=== PATIENT | female | born 1990 | race Caucasian/White ===

== ENCOUNTER 2020-05-16 14:41 | Emergency (ER) | payer OTHER, SELFPAY ==
--- NOTE | ~2020-05-16 | XR_ITS ---
XR shoulder LT min 2V 05/16/2020 15:49 INDICATION: Left shoulder pain PROCEDURE: 4 views left shoulder COMPARISON: No prior studies for comparison. FINDINGS: Fracture, dislocation or subluxation is not identified. The soft tissues appear within norm al limits. No foreign bodies are identified. IMPRESSION: 1: NO ACUTE BONE OR JOINT ABNORMALITY IDENTIFIED. Reviewed, dictated and finalized at location B. SWORD PUZZLE MAKER
--- NOTE | ~2020-05-16 | XR_ITS ---
EXAMINATION: XR elbow LT min 3V DATE: 05/16/2020 15:49 INDICATION: Diffuse left elbow pain post fall with inability to fully extend the elbow TECHNIQUE: Anteroposterior, two oblique and lateral views of the left elbow were obtained. COMPARISON: None. 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 There are multiple loose osteochondral bodies in the anterior recess and a smaller loose o steochondral body at the olecranon fossa. The combination of osteophytes and loose bodies likely acco unts for the reported decreased range of motion on extension, also likely limiting degree of flexion. There is a linear lucency projecting across the lateral margin of the radial head on the AP projecti on with suggestion of a subtle step off along the articular cortex on one of the oblique projections suspicious for a small nondisplaced intra-articular fracture. Specificity is however decreased by the abnormal cortical margins resulting from the hypertrophic osteophytosis. There are additional hetero topic ossicles which could be either chronic enthesopathy or prior trauma at the medial and lateral e picondylar origins of the common flexor and extensor tendon wads respectively. An elbow joint effusio n is present with displacement of the posterior fat pad which could be either reactive related to the osteoarthritis or posttraumatic. IMPRESSION: 1. Likely nondisplaced intra-articular fracture involving a small portion of the articular surface of the head of the left radius. Specificity is however decreased by the prominent hypertrophic osteophy dio associated with severe osteoarthritis which along with multiple loose osteochondral bodies in the joint space likely account for the decreased range of motion. Reviewed, dictated and finalized at location A. CATION RECONCILIATION TECHNICIAN IMPRESSION: 1. Likely nondisplaced intra-articular fracture involving a small portion of th e articular surface of the head of the left radius. Specificity is however decr eased by the prominent hypertrophic osteophytes associated with severe osteoart hritis which along with multiple loose osteochondral bodies in the joint space likely account for the decreased range of motion.
[2020-05-16 15:06] VITALS: BP 131/98; PULSE 84; RESP 16; TEMP 35.9; O2SAT 99
--- NOTE | 2020-05-16 16:32 | ED.GENADULT ---
HPI - General Adult General Chief complaint: Extremity Injury, Upper Stated complaint: left shoulder dislocation?? Time Seen by Provider: 05/16/20 15:04 Source: patient Mode of arrival: ambulatory Limitations: no limitations History of Present Illness HPI narrative: Patient presents with chief complaint left shoulder and elbow pain that began after being intoxicated yesterday and falling and putting out both palms to catch her self. Patient states she has dislocated the left elbow and fracture in the past. Patient denies any other injuries. Patient states that she also hit her eye but that was many days ago. She denies neurologic deficits, headache or any other symptoms. Patient denies chance of due to tubal ligation. Patient reports decreased range of motion to the extremity. Related Data Home Medications Medication Instructions Recorded Confirmed famotidine 20 mg PO DAILY 05/16/20 ibuprofen [Motrin] 800 mg PO TID PRN 05/16/20 levetiracetam [Keppra] 500 mg PO BID 05/16/20 trazodone 50 mg PO HS PRN 05/16/20 Allergies Allergy/AdvReac Type Severity Reaction Status Date / Time No Known Allergies Allergy Verified 05/16/20 14:44 Review of Systems Review of Systems: Narrative: CONSTITUTIONAL: Denies fever, chills, or sweats. EYES: Denies visual changes, redness, or discharge. ENT: Denies rhinorrhea, congestion, sore throat, or otalgia. CARDIOVASCULAR: Denies chest pain, palpitations, or edema. RESPIRATORY: Denies cough or dyspnea. GASTROINTESTINAL: Denies abdominal pain, nausea, vomiting, or diarrhea. GENITOURINARY: Denies dysuria or hematuria. SKIN: Reports bruising left eye Denies rash or itching. MUSCULOSKELETAL: Reports left shoulder and elbow pain Denies back pain, joint pain, or myalgia. NEUROLOGIC: Denies headache, numbness, dizziness, or weakness. PSYCHIATRIC: Denies anxiety or depression. Exam Narrative: Exam Narrative: GENERAL: Well-appearing, well-nourished. HEAD: Normocephalic, atraumatic. EYES: PERRLA and EOMI. Ecchymosis under left eye. ENT: Nares clear, no rhinorrhea or epistaxis. Mucous membranes moist. Oropharynx without tonsillar hypertrophy exudate or other lesions. NECK: Supple. No adenopathy or masses. No vertebral tenderness or loss of ROM. CHEST: Clear to auscultation. No respiratory distress. No wheezes rales or rhonchi HEART: Regular rate and rhythm. Normal peripheral pulses. EXTREMITIES: Decreased flexion and extension of left elbow due to pain. No ecchymosis. Rib Stiffener And Heel Dipper strength intact. No open wounds. Diffuse shoulder tenderness no sign of deformity or dislocation. SKIN: Warm, dry, no rash. NEURO: No focal deficits. Alert and oriented x3. PSYCH: Normal mood and affect. Course Vital Signs Vital signs: Vital Signs Temperature 96.6 F L 05/16/20 15:06 Pulse Rate 84 05/16/20 15:06 Respiratory Rate 16 05/16/20 15:06 Blood Pressure 131/98 H 05/16/20 15:06 Pulse Oximetry 99 05/16/20 15:06 Temperature 96.6 F L 05/16/20 15:06 Pulse Rate 84 05/16/20 15:06 Respiratory Rate 16 05/16/20 15:06 Blood Pressure 131/98 H 05/16/20 15:06 Pulse Oximetry 99 05/16/20 15:06 Procedures Orthopedic Splinting/Casting Injury #1: Side: left Upper Extremity Injury Location: elbow OCL: long arm Pre-Procedure Neuro Vascular Exam: normal Post-Procedure Neuro Vascular Exam: normal Other Orthopedic Equipment: other (sling) Medical Decision Making MDM Narrative Medical decision making narrative: It is possible the patient has a old fracture but is also possible it is an acute fracture. We will splint and refer patient for follow property management specialist for further investigation and management. Patient instructed not to use. Shoulder and RICE. Patient return to emergency department if she has any emergent symptoms. Patient admits that she is alcoholic so additional pain medications will not be prescribed. Differential Diagnosis D
== END 2020-05-16 17:07 | disposition home or self-care (01) ==
PROVIDERS: Emergency Provider Emergency Medicine; PCP Obstetrics & Gynecology
DX: S52.125A Nondisplaced fracture of head of left radius, initial encounter for closed fracture (principal); W19.XXXA Unspecified fall, initial encounter
CPT/HCPCS: 29105; 73030; 73080; 99284

== ENCOUNTER 2020-07-27 15:21 | Emergency (ER) | payer OTHER, SELFPAY ==
[2020-07-27 15:24] VITALS: BP 138/96; PULSE 114; RESP 22; TEMP 36.1; O2SAT 100
[2020-07-27 17:32] VITALS: BP 133/98; PULSE 101; RESP 18; TEMP 36.7; O2SAT 100
--- NOTE | 2020-07-27 17:34 | PC.NURSE ---
Patient reports subjective decrease in respiratory symptoms that she reported in initial assessment.
--- NOTE | 2020-07-27 18:51 | PC.NURSE ---
Ambulatory to ED 12. c/o having a panic attack today when she found out a family friend was placed on hospice. Has had an increase in panic attacks over the past month.
--- NOTE | 2020-07-27 19:29 | ED.GENADULT ---
HPI - General Adult General Chief complaint: Anxiety Stated complaint: short of breath Time Seen by Provider: 07/27/20 19:15 History of Present Illness HPI narrative: Patient a 30-year-old female presents the emergency department with chief complaint of panic attack. The patient states has been under a lot of stress and has noticed that for the last few weeks she has had 4 panic attacks. The patient states that I am seeing her she got into a discussion and then afterwards became extremely anxious. Patient states he felt as though the world was getting in on her he believes her heart was racing patient states that she been in the emergency department and is gradually improved. Patient denies suicidal or homicidal ideation and states that she needs a work note Related Data Home Medications Medication Instructions Recorded Confirmed famotidine 20 mg PO DAILY 05/16/20 05/18/20 ibuprofen [Motrin] 800 mg PO TID PRN 05/16/20 05/18/20 levetiracetam [Keppra] 500 mg PO BID 05/16/20 05/18/20 trazodone 50 mg PO HS PRN 05/16/20 05/18/20 multivitamin 1 tablet PO DAILY 05/18/20 Allergies Allergy/AdvReac Type Severity Reaction Status Date / Time No Known Allergies Allergy Verified 07/27/20 18:48 Review of Systems Review of Systems: Narrative: A 10 system review of systems was completed on the patient and is negative except for what is stated in the HPI. Nursing and ancillary documentation was reviewed. [facility] Past Medical History Medical History Anxiety Arthritis GERD (gastroesophageal reflux disease) UTI (urinary tract infection) Wears glasses Weight gain Surgical History Surgical History History of x2 Family History Family History Other Arthritis Asthma Cerebrovascular accident Depression Diabetes mellitus Hypertension Social History Social History Smoking status: Never smoker Alcohol intake: current Substance use: current Substance use type: does not use Gender identity (if verbalized by the patient): Female Exam Narrative: Exam Narrative: GENERAL: Well-appearing, well-nourished, and in no acute distress. HEAD: Normocephalic, atraumatic. EYES: PERRLA and EOMI. ENT: Nares clear, no rhinorrhea or epistaxis. Mucous membranes moist. NECK: Supple. CHEST: Clear to auscultation. No respiratory distress. HEART: Regular rate and rhythm. No murmur heard. Normal peripheral pulses. ABDOMEN: Soft, nontender, nondistended, normal active bowel sounds. EXTREMITIES: Normal range of motion. No edema. SKIN: Warm, dry, no rash. NEURO: No focal deficits. Alert and oriented x3. PSYCH: Normal mood and affect. Course Vital Signs Vital signs: Vital Signs Temperature 36.1 C L 07/27/20 15:24 Pulse Rate 114 H 07/27/20 15:24 Respiratory Rate 22 H 07/27/20 15:24 Blood Pressure 138/96 H 07/27/20 15:24 Pulse Oximetry 100 07/27/20 15:24 Temperature 36.7 C 07/27/20 17:32 Pulse Rate 101 H 07/27/20 17:32 Respiratory Rate 18 07/27/20 17:32 Blood Pressure 133/98 H 07/27/20 17:32 Pulse Oximetry 100 07/27/20 17:32 Medical Decision Making Vital Signs Vital Signs: Vital Signs Temperature 36.1 C L 07/27/20 15:24 Pulse Rate 114 H 07/27/20 15:24 Respiratory Rate 22 H 07/27/20 15:24 Blood Pressure 138/96 H 07/27/20 15:24 Pulse Oximetry 100 07/27/20 15:24 Temperature 36.7 C 07/27/20 17:32 Pulse Rate 101 H 07/27/20 17:32 Respiratory Rate 18 07/27/20 17:32 Blood Pressure 133/98 H 07/27/20 17:32 Pulse Oximetry 100 07/27/20 17:32 Discharge Plan Discharge Clinical Impression: Acute anxiety, Panic disorder Patient Disposition: Home, Self-Care Condition: Stable Instructions: Antibiot
[2020-07-27 19:30] VITALS: BP 135/77; PULSE 86; RESP 19; TEMP 36.9; O2SAT 99
--- NOTE | 2020-07-27 20:08 | PC.NURSE ---
Pt updated on poc and all questions and concerns addressed. Pt advised to press call button for assistance.
[2020-07-27] MEDS: hydrOXYzine HCL 25 MG TABLET 50 MG PO (20:09)
--- NOTE | 2020-07-27 20:19 | PC.NURSE ---
Pt presented to ED with complaints of a panic attack. Pt states initial onset was at 1000 this morning. Pt states she then went to work at two and immediately left after arriving because she felt like she couldn't breathe. Pt states she was provided 0.5mg of clonipin from her sister that provided no relief. Pt states she has had x4 panic attacks in the last month and has not been formally diagnosed or prescribed any medications to tx. Pt states she feels a little better but she still feels anxious. Breathing noted to be even and unlabored with O2 saturation of 99% on room air. Pt alert and oriented x4 and in no obvious distress. Pt also requesting a work note for today. Pt resting on cart in its lowest position with call button and personal items within reach. Spouse at bedside; advise to press call button for assistance.
== END 2020-07-27 20:26 | disposition home or self-care (01) ==
PROVIDERS: Emergency Provider Emergency Medicine; PCP Obstetrics & Gynecology
DX: F41.0 Panic disorder [episodic paroxysmal anxiety] (principal); F41.9 Anxiety disorder, unspecified; M19.90 Unspecified osteoarthritis, unspecified site; K21.9 Gastro-esophageal reflux disease without esophagitis; Z87.440 Personal history of urinary (tract) infections
CPT/HCPCS: 99283; A9270

== ENCOUNTER 2021-07-03 13:13 | Emergency (ER) | payer OTHER, SELFPAY ==
[2021-07-03 13:23] VITALS: BP 119/90; PULSE 111; RESP 18; TEMP 36.4; O2SAT 99
--- NOTE | 2021-07-03 13:53 | ED.FEMALEGU ---
HPI - Female Genitourinary General Chief complaint: Urogenital-Female Stated complaint: poss uti Time Seen by Provider: 07/03/21 13:53 Source: patient and RN notes reviewed Mode of arrival: ambulatory Limitations: no limitations History of Present Illness HPI Narrative: 31-year-old female presents with concern for dysuria, frequency, urgency for 3 days. She denies flank pain, abdominal pain, nausea, vomiting, fever, body aches, chills, sweats. Reports history of UTIs MD elicited complaint: UTI Related Data Home Medications Medication Instructions Recorded Confirmed famotidine 20 mg PO BID 05/16/20 07/03/21 ibuprofen [Motrin] 800 mg PO TID PRN 05/16/20 07/03/21 Allergies Allergy/AdvReac Type Severity Reaction Status Date / Time No Known Allergies Allergy Verified 07/27/20 18:48 Review of Systems Review of Systems: CONSTITUTIONAL: Denies malaise, chills, sweats, or fever. CARDIOVASCULAR: Denies chest pain, palpitations, or edema. RESPIRATORY: Denies cough or dyspnea. GASTROINTESTINAL: Denies abdominal pain, nausea, vomiting, diarrhea GENITOURINARY: Reports dysuria, frequency, urgency. Denies suprapubic pressure. Denies flank pain or hematuria. SKIN: Denies rash or itching. MUSCULOSKELETAL: Denies back pain or myalgia. All systems reviewed & are unremarkable except as noted in HPI and below PMFSH Past Medical History Medical History Anxiety Arthritis GERD (gastroesophageal reflux disease) UTI (urinary tract infection) Wears glasses Weight gain Surgical History Surgical History History of x2 Family History Family History Other Arthritis Asthma Cerebrovascular accident Depression Diabetes mellitus Hypertension Social History Social History Smoking status: Never smoker Alcohol intake: current Substance use: current Substance use type: does not use Gender identity (if verbalized by the patient): Female Comments At time of signature, agree with nursing past medical, surgical, social and family history. There is no relevant family history pertinent to the presenting complaint Exam Narrative: GENERAL: Well-appearing, well-nourished, and in no acute distress. HEAD: Normocephalic. EYES: PERRLA, conjunctivae clear. NECK: Supple. No lymphadenopathy CHEST: Clear to auscultation. No respiratory distress. HEART: Regular rate and rhythm. ABDOMEN: Soft, nontender upon palpation, nondistended, normal active bowel sounds, no palpable or pulsatile masses, no guarding. No CVA tenderness SKIN: Warm, dry, no rash. NEURO: Alert and oriented x3. PSYCH: Normal mood and affect Course Course Emergency Course: Patient is aware of diagnosis, understands and agrees to treatment plan. Anticipatory guidance given. Patient agrees to follow-up as directed and is aware of reasons to seek care at the emergency department. Portions of this record may have been created with voice recognition software Level of Care: Express Care Visit Vital Signs Vital signs: Vital Signs Temperature 97.6 F 07/03/21 13:23 Pulse Rate 111 H 07/03/21 13:23 Respiratory Rate 18 07/03/21 13:23 Blood Pressure 119/90 07/03/21 13:23 Pulse Oximetry 99 07/03/21 13:23 Temperature 97.6 F 07/03/21 13:23 Pulse Rate 111 H 07/03/21 13:23 Respiratory Rate 18 07/03/21 13:23 Blood Pressure 119/90 07/03/21 13:23 Pulse Oximetry 99 07/03/21 13:23 Reviewed. MDM - Female Genitourinary MDM Narrative Medical decision making narrative: Exam findings and UA show no acute concerns or changes; patient is non-toxic appearing and is in no distress. Patient is appropriate for outpatient treatment and follow-up. Differential Diagnosis Differential diagnosis:
== END 2021-07-03 14:01 | disposition home or self-care (01) ==
PROVIDERS: Emergency Provider Nurse Practitioner
DX: N30.01 Acute cystitis with hematuria (principal); M19.90 Unspecified osteoarthritis, unspecified site; K21.9 Gastro-esophageal reflux disease without esophagitis
CPT/HCPCS: 81003; 87077; 87086; 87186; 99213; G0463

== ENCOUNTER 2023-06-14 14:39 | Emergency (ER) | payer OTHER, SELFPAY ==
--- NOTE | ~2023-06-14 | XR_ITS ---
EXAMINATION: XR chest 2V DATE: 06/14/2023 18:51 INDICATION: Cough. TECHNIQUE: Frontal and lateral views of the chest were obtained. COMPARISON: None. FINDINGS: There is no pneumonia, pleural effusion, or pneumothorax. The heart size is normal. IMPRESSION: 1. No acute cardiopulmonary disease. Reviewed, dictated and finalized at location E.
--- NOTE | ~2023-06-14 | CT_ITS ---
EXAMINATION: CT abdomen pelvis w con DATE: 06/14/2023 19:53 INDICATION: Flank pain. TECHNIQUE: Computed tomography (CT) of the abdomen and pelvis was performed with 100 mL Omnipaque 350 intravenous contrast. Automated exposure control and iterative reconstruction technique were employe d. The dose-length product was 1304.18 mGy-cm. COMPARISON: None. FINDINGS: The visualized portions of the lung bases demonstrate mild atelectasis. No pleural effusion . The heart size is normal. No pericardial effusion. The liver, gallbladder, spleen, pancreas, adrena l glands, and kidneys are normal. There are no dilated loops of bowel. The appendix is normal. There is a mildly enlarged aortocaval lymph node, likely reactive. The uterus is septate. There is no free intraperitoneal fluid. There is mild thoracic and lumbar spondylosis. There is mild chronic anterior wedging of multiple lower thoracic vertebral bodies. IMPRESSION: 1. Mildly enlarged aortocaval lymph node, likely reactive. Reviewed, dictated and finalized at location E.
[2023-06-14 15:00] VITALS: BP 167/115; PULSE 98; RESP 20; TEMP 37; O2SAT 97
[2023-06-14 17:50] VITALS: BP 128/80; RESP 16; TEMP 36.7; O2SAT 100
--- NOTE | 2023-06-14 17:59 | ED.FEMALEGU ---
HPI - Female Genitourinary General Chief complaint: Urogenital-Female Stated complaint: Kidney infection Time Seen by Provider: 06/14/23 17:43 Source: patient Mode of arrival: ambulatory Limitations: no limitations History of Present Illness HPI Narrative: This is a 33 year old female that presents to the ER for flank pain. Reports she was recently diagnosed with a UTI and placed on ciprofloxacin. She only took 1 dose of this. She has now started to developed bilateral flank pain. Left worse than right. Also reports she has had a productive cough. Denies dysuria or hematuria. Related Data Home Medications Medication Instructions Recorded Confirmed famotidine 20 mg tablet 20 mg PO BID 05/16/20 07/03/21 ibuprofen 800 mg tablet 800 mg PO TID PRN Pain 05/16/20 07/03/21 Allergies Allergy/AdvReac Type Severity Reaction Status Date / Time No Known Allergies Allergy Verified 06/14/23 14:40 Review of Systems Review of Systems: CONSTITUTIONAL: Denies fever RESPIRATORY: Reports cough GASTROINTESTINAL: Reports abdominal pain. Denies nausea, vomiting, or diarrhea. GENITOURINARY: Denies dysuria or hematuria. MUSCULOSKELETAL: Reports back pain All systems reviewed & are unremarkable except as noted in HPI and below PMFSH Past Medical History Medical History Anxiety Arthritis GERD (gastroesophageal reflux disease) UTI (urinary tract infection) Wears glasses Weight gain Surgical History Surgical History History of x2 Family History Family History Other Arthritis Asthma Cerebrovascular accident Depression Diabetes mellitus Hypertension Social History Social History (System 12/15/22 @ 13:15 by Vega Alvares) Smoking status: Never smoker Alcohol intake: current Substance use: current Substance use type: does not use Gender identity (if verbalized by the patient): Female Exam Narrative: GENERAL: Well-appearing, well-nourished, and in no acute distress. HEAD: Normocephalic, atraumatic. EYES: EOMI. CHEST: Clear to auscultation. No respiratory distress. No wheezes rales or rhonchi HEART: Regular rate and rhythm. No murmur heard. Normal peripheral pulses. ABDOMEN: Soft, nontender, nondistended, normal active bowel sounds. EXTREMITIES: Normal range of motion. No edema. SKIN: Warm, dry, no rash. NEURO: No focal deficits. Alert and oriented x3. PSYCH: Normal mood and affect Course Course Emergency Course: Patient updated on her workup and agrees with plan of care Vital Signs Vital signs: Vital Signs Temperature 98.6 F 06/14/23 15:00 Pulse Rate 98 06/14/23 15:00 Respiratory Rate 20 06/14/23 15:00 Blood Pressure 167/115 H 06/14/23 15:00 Pulse Oximetry 97 06/14/23 15:00 Oxygen Delivery Room Air 06/14/23 15:00 Temperature 98.0 F 06/14/23 17:50 Pulse Rate 110 H 06/14/23 19:16 Respiratory Rate 20 06/14/23 19:16 Blood Pressure 128/80 06/14/23 17:50 Pulse Oximetry 99 06/14/23 19:16 Oxygen Delivery Room Air 06/14/23 17:50 MDM - Female Genitourinary MDM Narrative Medical decision making narrative: Patient presents to the emergency department with flank pain. Reports recently being diagnosed with UTI and not finishing her antibiotics. Also endorsing a productive cough. She is afebrile and nontoxic appearing. Lungs are clear on exam. Oxygen saturation is normal on room air. CBC with mild leukocytosis to 10.5. Also shows normocytic anemia with hemoglobin of 11.4. Metabolic panel without concerning findings. UA without evidence of infection. test is negative. Influenza, COVID, and RSV screens are negative. Chest x-ray without acute cardiopulmonary abnormality. CT abdomen pelvis shows a mildly enlarged lymph node, otherwise no acute f
[2023-06-14 18:21] LABS: Basophils Absolute Auto 0.1 K/mm3 (0.0-0.1); Basophils Percent Auto 0.6 % (0.2-1.2); Eosinophils Absolute Auto 0.3 K/mm3 (0-0.3); Eosinophils Percent Auto 2.8 % (0-4.4); Hematocrit 36.8 % (37.0-47.0); Hemoglobin 11.4 g/dL (12.0-15.0); Immature Granulocyte Absolute 0.15 K/mm3 (0.00-0.031); Immature Granulocyte Percent A 1.4 % (0-0.5); Lymphocytes Absolute Auto 2.76 K/mm3 (0.9-3.2); Lymphocytes Percent Auto 26.3 % (18.3-44.2); Mean Corpuscular Hemoglobin 26.4 pg (26-34); Mean Corpuscular Volume 85.2 fl (80-100); Mean Platelet Volume 9.7 fl (7.4-10.4); Monocytes Absolute Auto 0.7 K/mm3 (0.1-0.6); Monocytes Percent Auto 6.4 % (2.6-8.5); Neutrophils Absolute Auto 6.6 K/mm3 (1.3-6.7); Neutrophils Percent Auto 62.5 % (45.5-73.1); Platelet Count Result 383 k/mm3 (150-375); Red Blood Count 4.32 M/mm3 (4.2-5.4); Red Cell Distribution Width 15.8 % (11.5-14.5); White Blood Count 10.5 K/mm3 (4.5-10.0)
[2023-06-14 18:23] LABS: Appearance Urine Clear (Clear); Bilirubin Urine Negative (Negative); Blood Urine Negative (Negative); Color Urine Yellow (Yellow); Glucose Urine UA Negative (Negative); Ketones Urine Negative (Negative); Leukocyte Esterase Ur Negative LEU/UL (Negative); Nitrate Urine Negative (Negative); Protein Urine Negative (Negative); Specific Grav Ur 1.017 (1.001-1.035); Urobilinogen Urine 0.2 mg/dL (<2.0)
[2023-06-14 18:29] LABS: Anion Gap 2 mmol/L (8-16); Blood Urea Nitrogen 12 mg/dL (7-17); Calcium 8.9 mg/dL (8.4-10.2); Carbon Dioxide 27 mmol/L (22-30); Chloride 105 mmol/L (98-107); Estimated CRCL calculation 131 ml/min; Estimated Glomerular Filt Rate > 60; Glucose 97 mg/dL (65-110); Potassium 3.8 mmol/L (3.4-5.0); Sodium 134 mmol/L (137-145)
[2023-06-14 18:33] LABS: Add Urine Microscopic? NO
[2023-06-14 18:56] LABS: Influenza A QL RT-PCR Negative (Negative); Influenza B QL RT-PCR Negative (Negative); RSV RNA, RT-PCR Negative (Negative); SARS-CoV-2 RNA PCR Negative (Negative)
[2023-06-14 19:16] VITALS: PULSE 110; RESP 20; O2SAT 99
[2023-06-14] MEDS: SODIUM CHLORIDE 0.9% IV 1,000 ML 999 ML IV CONT (19:22)
== END 2023-06-14 20:50 | disposition home or self-care (01) ==
PROVIDERS: Emergency Provider Physician Assistant
DX: R10.9 Unspecified abdominal pain (principal); R05.1 Acute cough; D64.9 Anemia, unspecified; N39.0 Urinary tract infection, site not specified; Z20.822 Contact with and (suspected) exposure to COVID-19; M19.90 Unspecified osteoarthritis, unspecified site; K21.9 Gastro-esophageal reflux disease without esophagitis
CPT/HCPCS: 36415; 71046; 74177; 80048; 81003; 81025; 85025; 87637; 96360; 99284; J7030; Q9967